=== PATIENT | male | born 1955 | race Caucasian/White ===

== ENCOUNTER 2021-02-19 01:55 | Emergency (ER) | payer MEDICARE, OTHER ==
[~2021-02-19] VITALS: Ht 177.8 cm; Wt 89.8 kg
[2021-02-19] MEDS ORDERED: ATORVASTATIN CA20 MG PO (02:39)
[2021-02-19] MEDS ORDERED: TAMSULOSIN HCL0.4 M1 PO (02:39)
[2021-02-19 02:46] LABS: Source, Urine Clean Catch
[2021-02-19 02:49] LABS: Bilirubin, Urine Neg (Neg); Blood, Urine 2+ (Neg); Glucose Qualitative, Urine Neg (Neg); Ketones, Urine Neg (Neg); Leukocyte Esterase, Urine Neg (Neg); Nitrite, Urine Neg (Neg); Protein, Urine Neg (Neg); Specific Gravity, Urine 1.025 (1.003-1.022); Urobilinogen, Urine NORM (Normal)
[2021-02-19 02:57] LABS: Appearance, Urine Clear (Clear); Bacteria Not Seen /hpf; Color, Urine Yellow (P-Yellow); Mucus Light (0-Heavy); Squamous Epithelial Cells Not Seen /hpf (Few); White Blood Cells, Urine Not Seen /hpf (0-5)
[2021-02-19 02:59] LABS: BASOPHILS ABSOLUTE AUTO 0.06 K/mm3 (0.00-0.23); BASOPHILS PERCENT AUTO 1 % (0-2); EOSINOPHILS PERCENT AUTO 3 % (0-6); Hematocrit 39.3 % (37.0-53.0); Hemoglobin 13.4 g/dL (13.5-17.5); IMMATURE GRAN ABSOLUTE AUTO 0.02 K/mm3 (0.00-0.10); IMMATURE GRAN PERCENT AUTO 0 % (0-1); LYMPHOCYTES ABSOLUTE AUTO 0.82 K/mm3 (0.84-5.20); LYMPHOCYTES PERCENT AUTO 12 % (21-46); MONOCYTES ABSOLUTE AUTO 0.66 K/mm3 (0.16-1.47); MONOCYTES PERCENT AUTO 10 % (4-13); Mean Corpuscular HGB 31.3 pg (26.0-34.0); Mean Corpuscular HGB Conc 34.1 g/dL (31.5-36.5); Mean Corpuscular Volume 92 fL (80-100); Mean Platelet Volume 11.2 fL (9.1-12.4); NEUTROPHILS ABSOLUTE AUTO 4.89 K/mm3 (1.96-9.15); NEUTROPHILS PERCENT AUTO 74 % (41-73); Platelet Count 127 K/mm3 (150-400); RDW Coefficient Variation 12.4 % (11.7-14.2); RDW Standard Deviation 41.7 fL (35.1-46.3); Red Blood Cell Count 4.28 M/mm3 (4.30-5.90); White Blood Cell Count 6.65 K/mm3 (4.00-11.30)
[2021-02-19 03:20] LABS: Albumin, Blood 3.3 g/dL (3.4-5.0); Bilirubin, Total 0.5 mg/dL (0.1-1.0); Bun/Creatinine Ratio 19.7 (12.0-20.0); Calcium, Blood 8.5 mg/dL (8.5-10.1); Creatinine, Blood 1.57 mg/dL (0.60-1.20); Globulin, Blood 3.2 g/dL (2.2-4.0); Potassium, Blood 3.9 mmol/L (3.5-5.5); Total Protein, Blood 6.5 g/dL (6.4-8.2)
== END 2021-02-19 05:51 | disposition home or self-care (01) ==
LOC: ER 01:55
PROVIDERS: Student in an Organized Health Care Education/Training Program
DX: N13.2 Hydronephrosis with renal and ureteral calculous obstruction (principal)
CPT/HCPCS: 36415; 74176; 80053; 81001; 85025; 96374; 99284-25; A9270; J1885

== ENCOUNTER 2022-11-20 08:04 | Day surgery (SDC) | payer OTHER ==
[~2022-11-20] VITALS: Ht 177.8 cm; Wt 90.6 kg
[~2022-11-20 08:04] MED LIST: ACET325 PO; ACYC400 PO; ATORVASTATIN CA20 MG PO; DEPO-TESTO200 MG/1 M IM; TAMSULOSIN HCL0.4 M1 PO; Voltaren100 GM TOP; [UNRECOGNIZED DRUG - OTHER] SC
--- NOTE | 2022-11-20 11:08 | NUR ---
11/20/22 1108 Daisy Tong PATIENT RECEIVED VANCO 1GM IN THE PREOP SETTING PRIOR TO ARRIVING IN THE OR.
--- NOTE | 2022-11-20 18:48 | NUR ---
SHIFT SUMMARY PT A&OX4, VSS/RA, FERNANDA PO, VOIDING, AMB SBA FWW, UP TO CHAIR, PHYSICAL THERAPY EVAL'D, PAIN MANAGED WITH TYLENOL/TORADOL/OXY 5. S/P R TKA, AQUACEL AND NIKO CDI, ELEVATED, POLAR SIDNEY ON. WILL REPORT TO ONCOMING NOC RN.
--- NOTE | 2022-11-21 05:09 | NUR ---
SUMMARY POD1 R TKA, PT AOX4. AQUACEL AND NIKO WRAP TO KNEE C/D/I. PT UP MULTIPLE TIMES T/O SHIFT TO VOID. PASSING GAS AND TOELRATING PO INTAKE. MEDICATED FOR NAUSEA X1 AT START OF SHIFT, MEDICATED FOR PAIN AND TOLERATING. ICE SIDNEY IN PLACE AND SCD'S ON. PT IS SBA, W/ GB, FWW. PLAN FOR PT IN AM. WILL PREMEDICATE. VSS, AND CALL LIGHT IN REACH.
[2022-11-21 05:19] LABS: BASOPHILS ABSOLUTE AUTO 0.05 K/mm3 (0.00-0.23); BASOPHILS PERCENT AUTO 1 % (0-2); EOSINOPHILS ABSOLUTE AUTO 0.23 K/mm3 (0.00-0.68); EOSINOPHILS PERCENT AUTO 2 % (0-6); Hematocrit 41.7 % (37.0-53.0); Hemoglobin 13.9 g/dL (13.5-17.5); IMMATURE GRAN ABSOLUTE AUTO 0.04 K/mm3 (0.00-0.10); IMMATURE GRAN PERCENT AUTO 0 % (0-1); LYMPHOCYTES ABSOLUTE AUTO 1.55 K/mm3 (0.84-5.20); LYMPHOCYTES PERCENT AUTO 15 % (21-46); MONOCYTES PERCENT AUTO 9 % (4-13); Mean Corpuscular HGB 30.8 pg (26.0-34.0); Mean Corpuscular HGB Conc 33.3 g/dL (31.5-36.5); Mean Corpuscular Volume 92 fL (80-100); Mean Platelet Volume 10.2 fL (9.1-12.4); NEUTROPHILS ABSOLUTE AUTO 7.37 K/mm3 (1.96-9.15); NEUTROPHILS PERCENT AUTO 73 % (41-73); Platelet Count 174 K/mm3 (150-400); RDW Coefficient Variation 12.8 % (11.7-14.2); RDW Standard Deviation 43.2 fL (35.1-46.3); Red Blood Cell Count 4.52 M/mm3 (4.30-5.90); White Blood Cell Count 10.14 K/mm3 (4.00-11.30)
[2022-11-21 05:40] LABS: Bun/Creatinine Ratio 15.5 (12.0-20.0); Calcium, Blood 8.1 mg/dL (8.5-10.1); Creatinine, Blood 1.16 mg/dL (0.60-1.20); Potassium, Blood 3.8 mmol/L (3.5-5.5)
[2022-11-21] MEDS ORDERED: ASPI81CH PO (07:38)
[2022-11-21] MEDS ORDERED: Percocet 5-3251 EACH PO (07:39)
--- NOTE | 2022-11-21 10:51 | NUR ---
DISCHARGE NOTE: PATIENT WAS EDUCATED ON DISCHARGE INSTRUCTIONS. PATIENT VERBALIZED UNDERSTANDING OF IN STRUCTIONS AND HAD NO FURTHER QUESTIONS AT THIS TIME. HARD PERSCRIPTIONS WERE PLACED IN DISCHARGE FOLDER AND GIVEN TO PATIENT. PAIN IS MANAGED WITH PO PAIN MEDICATIONS. HIS RIGHT KNEE HAS AN AQUACEL DRESSING THAT IS C/D/I. DENIES NUMBNESS OR TINGLING IN ALL EXTREMITIES. HE IS TOLERATING PO INTAKE AND IS VOIDING. HE IS A SBA WITH FWW AND GAIT BELT. PATIENT IS DRESSED AND HAS PERSONAL ITEMS IN THE ROOM GATHERED. IV WAS TAKEN OUT AND WNL. HE IS BEING WHEELCHAIRED OUT TO HIS BROTHERS CAR TO BE TAKEN HOME.
== END 2022-11-21 10:51 | disposition home or self-care (01) ==
LOC: ORSCMMR 08:04 → ORD 09:15 → SURS 12:46 → ORSCMMR 11-21 10:51
PROVIDERS: Orthopaedic Surgery
PROC: 0SRC0JA Replacement of Right Knee Joint with Synthetic Substitute, Uncemented, Open Approach (ICD-10-PCS; principal; 2022-11-20 09:15)
PROC: 8E0Y0CZ Robotic Assisted Procedure of Lower Extremity, Open Approach (ICD-10-PCS; principal; 2022-11-20 09:15)
DX: M17.11 Unilateral primary osteoarthritis, right knee (principal); E78.5 Hyperlipidemia, unspecified; Z79.899 Other long term (current) drug therapy
CPT/HCPCS: 27447; 20985; S2900; 36415; 73560-RT; 80048; 85025; 97110; 97116; 97161; 97530; A9270; C1776; J0171; J0690; J0735; J1885; J2250; J2370; J2405; J2704; J2765; J2795; J3010; J3370; J7120

== ENCOUNTER 2022-12-09 01:00 | Observation (INO) | payer OTHER ==
[~2022-12-09] VITALS: Ht 177.8 cm; Wt 88.9 kg
[~2022-12-09 01:00] MED LIST changes: +ASPI81CH PO; +Percocet 5-3251 EACH PO
[2022-12-09 04:55] LABS: BASOPHILS ABSOLUTE AUTO 0.08 K/mm3 (0.00-0.23); BASOPHILS PERCENT AUTO 1 % (0-2); EOSINOPHILS ABSOLUTE AUTO 0.31 K/mm3 (0.00-0.68); EOSINOPHILS PERCENT AUTO 4 % (0-6); Hematocrit 41.9 % (37.0-53.0); Hemoglobin 13.8 g/dL (13.5-17.5); IMMATURE GRAN ABSOLUTE AUTO 0.04 K/mm3 (0.00-0.10); IMMATURE GRAN PERCENT AUTO 1 % (0-1); LYMPHOCYTES PERCENT AUTO 18 % (21-46); MONOCYTES ABSOLUTE AUTO 0.92 K/mm3 (0.16-1.47); MONOCYTES PERCENT AUTO 12 % (4-13); Mean Corpuscular HGB 30.7 pg (26.0-34.0); Mean Corpuscular HGB Conc 32.9 g/dL (31.5-36.5); Mean Corpuscular Volume 93 fL (80-100); Mean Platelet Volume 9.8 fL (9.1-12.4); NEUTROPHILS ABSOLUTE AUTO 5.03 K/mm3 (1.96-9.15); NEUTROPHILS PERCENT AUTO 65 % (41-73); Platelet Count 248 K/mm3 (150-400); RDW Coefficient Variation 13.2 % (11.7-14.2); RDW Standard Deviation 45.3 fL (35.1-46.3); Red Blood Cell Count 4.49 M/mm3 (4.30-5.90); White Blood Cell Count 7.78 K/mm3 (4.00-11.30)
[2022-12-09 05:12] LABS: Albumin, Blood 3.2 g/dL (3.4-5.0); Bilirubin, Total 0.9 mg/dL (0.1-1.0); Calcium, Blood 8.4 mg/dL (8.5-10.1); Creatinine, Blood 0.94 mg/dL (0.60-1.20); Globulin, Blood 3.3 g/dL (2.2-4.0); Potassium, Blood 3.9 mmol/L (3.5-5.5); Total Protein, Blood 6.5 g/dL (6.4-8.2)
[2022-12-09 10:41] LABS: Appearance, Synovial Fluid Bloody (Clear); Color, Synovial Fluid Red (None-P Yel)
[2022-12-09 10:42] LABS: BODY FLUID RBC 1.719 M/mm3 (0-0); RBC Count, Synovial Fluid 1719000 /mm3 (0-0); WBC Count, Synovial Fluid 1608 /mm3 (0-180)
[2022-12-09 12:50] LABS: Eos, Synovial Fluid 10 % (0-2); Lymphs, Synovial Fluid 21 % (0-15); Monocytes/Macrophages, Synovia 8 % (0-65); Neutrophils, Synovial Fluid 61 % (0-24)
--- NOTE | 2022-12-09 16:37 | NUR ---
SHIFT SUMMARY PT A&OX4, VSS/RA, FERNANDA PO, VOIDING, AMB SBA FWW & GB, UP TO CHAIR, PAIN MANAGED WITH TYLENOL, TORADOL AND OXY 5 MG. IVF & ABX PER EMAR. S/P RIGHT KNEE I&D, WBAT, DRESSING CDI, PHYSICAL THERAPY EVAL'D. WILL REPORT TO ONCOMING MATEO [place].
[2022-12-10 03:50] LABS: BASOPHILS ABSOLUTE AUTO 0.04 K/mm3 (0.00-0.23); BASOPHILS PERCENT AUTO 1 % (0-2); EOSINOPHILS ABSOLUTE AUTO 0.04 K/mm3 (0.00-0.68); EOSINOPHILS PERCENT AUTO 1 % (0-6); Hematocrit 37.4 % (37.0-53.0); Hemoglobin 12.4 g/dL (13.5-17.5); IMMATURE GRAN ABSOLUTE AUTO 0.02 K/mm3 (0.00-0.10); IMMATURE GRAN PERCENT AUTO 0 % (0-1); LYMPHOCYTES ABSOLUTE AUTO 1.25 K/mm3 (0.84-5.20); LYMPHOCYTES PERCENT AUTO 15 % (21-46); MONOCYTES ABSOLUTE AUTO 0.85 K/mm3 (0.16-1.47); MONOCYTES PERCENT AUTO 10 % (4-13); Mean Corpuscular HGB 31.2 pg (26.0-34.0); Mean Corpuscular HGB Conc 33.2 g/dL (31.5-36.5); Mean Corpuscular Volume 94 fL (80-100); Mean Platelet Volume 10.1 fL (9.1-12.4); NEUTROPHILS PERCENT AUTO 73 % (41-73); Platelet Count 258 K/mm3 (150-400); RDW Coefficient Variation 13.2 % (11.7-14.2); RDW Standard Deviation 45.1 fL (35.1-46.3); Red Blood Cell Count 3.98 M/mm3 (4.30-5.90)
[2022-12-10 04:08] LABS: Albumin, Blood 2.8 g/dL (3.4-5.0); Albumin/Globulin Ratio 0.9 (0.8-1.8); Bilirubin, Total 0.6 mg/dL (0.1-1.0); Calcium, Blood 8.2 mg/dL (8.5-10.1); Creatinine, Blood 1.14 mg/dL (0.60-1.20); Magnesium, Blood 2.5 mg/dL (1.6-2.4); Potassium, Blood 3.9 mmol/L (3.5-5.5); Total Protein, Blood 5.8 g/dL (6.4-8.2)
--- NOTE | 2022-12-10 06:05 | NUR ---
SUMMARY POD #1 I&D/REPAIR R KNEE. PT IS A&O X4, ON RA, VSS, SBA W/FWW, TOLERATING PO INTAKE, TESSA URINE/ STRONG ODOR, DRSG C/D/I, CIRC WNL, PAIN MANGED PER EMAR, PT IS USING ALL PRECATIONS WITH ACTIVITY, RESTING QUIETLY AT THIS TIME, CALL LIGHT IN REACH
--- NOTE | 2022-12-10 13:05 | NUR ---
Upon receiving a referral for spiritual care, I visited the patient. Patient talks at length about his medical issues (knees, hip and shoulder) and then about his life (where he grew up, his careers, marriages, two step sons and his brother that lives less than a mile from him, his hobbies). He tells me about his poor experiences with congregation and therefore his disconnect with God. His living situation puts him in view of some yazidi leaders that continue to sour his thoughts about what God might be like. I normalize his experience, reinforce helpful attitudes and practices and provide therapeutic listening. I will continue to rmeian available to patient and family.
--- NOTE | 2022-12-10 17:14 | NUR ---
SHIFT SUMMARY NO ACUTE CHANGES THIS SHIFT. AWUACEL TO RIGHT KNEE, C/D/I. PAIN MANAGED WELL PER EMAR. EATING, DRINKING, & VOIDING WELL. AMBULATIING WELL SBA W/ FWW & GB. PATIENT CLEARED THERAPY TODAY, PLANNING TO RETURN HOME W/ OUTPATIENT THERAPY ONCE MD OLSON W/ DISCHARGE. CALLS APPROPRIATELY, IN REACH. WILL REPORT TO ONCLAURA RN AT 1900.
--- NOTE | 2022-12-11 04:19 | NUR ---
SHIFT SUMMARY NO ACUTE CHANGES THIS SHIFT. PT RESTED WELL. AQUACEL DRESSING TO RIGHT KNEE REMAINS CDI. PAIN MANAGED WITH 1 ROXICODONE/TYLENOL/TORADOL. UP WITH 1 ASSIST USING FWW. VSS. USES CALL LIGHT APPROPRIATELY.
[2022-12-11] MEDS ORDERED: SULTRIDS PO (10:24)
[2022-12-11] MEDS ORDERED: FAMO20 PO (10:27)
[2022-12-11] MEDS ORDERED: BENADRYL25 MG PO (10:27)
[2022-12-11] MEDS ORDERED: DOCU100 PO (10:27)
[2022-12-11] MEDS ORDERED: VISBIOME 112.51 EACH PO (10:28)
[2022-12-11] MEDS ORDERED: OXYC5 PO (10:28)
[2022-12-11] MEDS ORDERED: TAMS.4ER PO (10:28)
[2022-12-11] MEDS ORDERED: DULCOLAX400 MG/5 M PO (10:29)
--- NOTE | 2022-12-11 11:00 | NUR ---
[facility] CALLED IN TO [facility]
--- NOTE | 2022-12-11 11:47 | NUR ---
DICHARGE PATIENT CLEARED THERAPY, OKAY'D TO DC BY MD. EATING, DRINKING, & VOIDING WELL. PAIN MANAGED WELL PER EMAR. AWUACEL TO RIGHT KNEE, C/D/I. AMBULATING WELL SBA W/ FWW & GB. DISCUSSED DICAHRGE INSTRUCTIONS AND SENT WITH PATIENT. PATIENT WAITING FOR ANITRA, WILL ESCORT OUT VIA W/C WHEN RIDE ARRIVES.
--- NOTE | 2022-12-11 14:22 | NUR ---
PATIENT ESCORTED OUT VIA W/C. NO ACUTE CHANGES SINCE PREVIOUS DISCHARGE NOTE.
== END 2022-12-11 14:28 | disposition home or self-care (01) ==
LOC: ER 01:00 → ERHOLD 01:01 → SURS 10:18
PROVIDERS: Emergency Medicine; Orthopaedic Surgery; Student in an Organized Health Care Education/Training Program; ADMIT Internal Medicine
PROC: 0JQN0ZZ Repair Right Lower Leg Subcutaneous Tissue and Fascia, Open Approach (ICD-10-PCS; principal; 2022-12-09 08:30)
DX: T81.31XA Disruption of external operation (surgical) wound, not elsewhere classified, initial encounter (principal); Y83.8 Other surgical procedures as the cause of abnormal reaction of the patient, or of later complication, without mention of misadventure at the time of the procedure; Z96.651 Presence of right artificial knee joint; Z79.899 Other long term (current) drug therapy; K21.9 Gastro-esophageal reflux disease without esophagitis
CPT/HCPCS: 36415; 73560-RT; 80053; 83735; 85025; 89051; 96374-59; 97110; 97110-CQ; 97116; 97116-CQ; 97161; 97530-CQ; 99284-25; A9270; J0171; J0690; J0735; J1100; J1885; J2250; J2370; J2405; J2704; J2795; J3010; J3370; J7050